=== PATIENT | male | born 1995 | race Caucasian/White ===

== ENCOUNTER 2018-06-12 12:28 | Emergency (ER) | payer SELFPAY ==
[~2018-06-12] VITALS: Ht 167.6 cm; Wt 69.9 kg
[2018-06-12 12:53] VITALS: BP 145/87
[2018-06-12] MEDS ORDERED: MECLIZINE 25 MG TAB PO ONE (14:45)
[2018-06-12 15:16] VITALS: BP 121/71
== END 2018-06-12 15:16 | disposition home or self-care (01) ==
LOC: MED 12:28
DX: H10.9 Unspecified conjunctivitis (principal)
CPT/HCPCS: 99282; J8597